=== PATIENT | female | born 1970 | race Caucasian/White ===

== ENCOUNTER 2020-08-31 20:04 | Emergency (ER) | payer OTHER, SELFPAY ==
[2020-08-31] VITALS (8 sets, daily range): BP systolic 122–136; BP diastolic 61–86; PULSE 65–80; RESP 14–19; TEMP 36.8–36.9; O2SAT 97–100; BMI 22.9
--- NOTE | 2020-08-31 20:08 | ECG_ITS ---
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 Measurements Intervals [place] Rate: 69 P: 61 GA: 160 QRS: 34 QRSD: 101 T: 35 QT: 397 QTc: 427 Interpretive Statements SINUS RHYTHM No previous ECG available for comparison Electronically Signed On 08-31-2020 22:02:04 GEOSCIENCES ASSOCIATE PROFESSOR by Houston Love M.D. [id number]
--- NOTE | 2020-08-31 20:31 | XR_ITS ---
WS: [id number] PORTABLE CHEST HISTORY: Covid positive, chest pain COMPARISON: None available. Lungs are clear and well expanded. No pleural effusion or pneumothorax. Cardiac size: Normal. Mediastinum/Aorta: Normal mediastinum. No osseous abnormality seen. XR/XR chest 1V portable [id number] IMPRESSION: Unremarkable portable chest.
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
[2020-08-31 21:03] LABS: Basophils % 0.5 %; Eosinophils # 0.1 10^3/uL (0.0-0.8); Eosinophils % 1.4 %; Hematocrit 39.1 % (37.0-47.0); Hemoglobin 12.5 g/dL (11.5-15.3); Lymphocytes # 1.8 10^3/uL (0.8-4.8); Lymphocytes % 42.1 %; Mean Platelet Volume 10.1 fL (7.4-10.4); Monocytes # 0.3 10^3/uL (0.2-0.9); Neutrophils # 2.02 10^3/uL (1.8-7.7); Neutrophils % 47.8 %; Nucleated Red Blood Cells % 0 %; Platelet Count 199 10^3/cmm (130-400); Red Blood Count 4.16 10^6/uL (4.1-5.3); Red Cell Distribution Width 12.5 % (12.1-15.1); White Blood Count 4.2 10^3/uL (4.0-10.0)
[2020-08-31 21:22] LABS: D Dimer 0.34 ug/mIFEU (0-0.59)
[2020-08-31 21:37] LABS: Alanine Aminotransferase 10 U/L (0-33); Albumin Level 4.5 g/dL (3.5-5.2); Alkaline Phosphatase 92 IU/L (35-105); Anion Gap 10.8 (5-19); Aspartate Amino Transferase 14 U/L (0-32); Blood Urea Nitrogen 10 mg/dL (6-20); Calcium 9.3 mg/dL (8.5-10.5); Carbon Dioxide 28 mmol/L (22-29); Chloride 108 mmol/L (98-107); Globulin 1.8 g/dL (1.3-4.6); Glomerular Filtration Rate 129.6 mL/min (90-130); Glucose 114 mg/dL (65-115); Lipase 84 U/L (13-60); NT Pro B Type Natriuretic Pept 72 pg/mL (0-125); Osmolality Calculated 296 mOsm/kg (285-295); Potassium 3.8 mmol/L (3.5-5.1); Sodium 143 mmol/L (136-145); Total Bilirubin 0.3 mg/dL (0.15-1.2); Total Protein 6.3 g/dL (6.6-8.7)
[2020-08-31] MEDS: acetaminophen 500 mg Tablet 1000 MG PO (21:39)
[2020-08-31 22:09] LABS: Troponin(5th) Baseline 6 ng/L (0-10)
== END 2020-08-31 22:33 | disposition home or self-care (01) ==
PROVIDERS: Emergency Provider Emergency Medicine
DX: U07.1 COVID-19 (principal); R07.9 Chest pain, unspecified
CPT/HCPCS: 12345; 71045; 80053; 83690; 83880; 84484; 85025; 85378; 93005; 99283; 99284